=== PATIENT | male | born 1960 ===

== ENCOUNTER → 2018-09-22 05:24 | Day surgery (SDC) | payer OTHER | END | disposition home or self-care (01) | LOC: D.OPS 05:24 | PROVIDERS: ATTEND Surgery | DX: Z86.010 Personal history of colon polyps (principal); Z53.9 Procedure and treatment not carried out, unspecified reason ==

== ENCOUNTER 2018-09-29 09:55 | Day surgery (SDC) | payer OTHER ==
[~2018-09-29] VITALS: Ht 177.8 cm; Wt 72.7 kg
[2018-09-29] MEDS ORDERED: LISINOPRIL40 MG (10:34)
[2018-09-29] MEDS ORDERED: AIRDUO (10:36)
[2018-09-29] MEDS ORDERED: ACETAMINOPHEN500 M1 (10:36)
[2018-09-29] MEDS ORDERED: NORVASC10 MG (10:37)
[2018-09-29] MEDS ORDERED: BAYER CHEWABLE81 MG PO (10:38)
[2018-09-29 10:39] LABS: BASOPHILS 0.1 % (0-2); EOSINOPHILS 2.7 % (0-7); HEMATOCRIT 27.7 % (42.0-54.0); HEMOGLOBIN 8.1 g/dL (13.5-17.5); IMMATURE GRANULOCYTES 0.2 % (0-5); LYMPHOCYTES 10.7 % (15-50); MCH 23.5 pg (26.0-34.0); MCHC 29.2 g/dL (31.0-37.0); MCV 80.5 fL (80.0-100.0); MEAN PLATELET VOLUME 9.1 fL (7.4-10.4); MONOCYTES 6.7 % (2-11); NEUTROPHILS 79.6 % (40-80); PLATELET COUNT 444 10x3/uL (130-400); RBC 3.44 10x6/uL (4.20-6.10); RDW 15.4 % (11.5-14.5); WBC 9.6 10x3/uL (4.8-10.8)
[2018-09-29] MEDS ORDERED: BACLOFEN10 MG (10:39)
[2018-09-29] MEDS ORDERED: COLACE100 MG (10:40)
[2018-09-29] MEDS ORDERED: PROTONIX40 MG (10:40)
[2018-09-29] MEDS ORDERED: XOPENEX HFA15 GM (10:41)
[2018-09-29] MEDS ORDERED: CARAFATE1 G (10:41)
[2018-09-29] MEDS ORDERED: IRON (10:43)
[2018-09-29 10:49] LABS: ANION GAP 11.9 mmol/L (8-16); CALCIUM 8.6 mg/dL (8.5-10.1); CARBON DIOXIDE 27.1 mmol/L (21.0-32.0); CREATININE - SERUM 1.1 mg/dL (0.6-1.3)
[2018-09-29 11:08] VITALS: BP 132/70; Ht 177.8 cm; Wt 72.7 kg
--- NOTE | 2018-10-01 16:42 | HP ---
PATIENT: MITCH FIGUEROA MEDICAL RECORD: [id number] ACCOUNT: [id number] LOCATION:[facility] : 64 ADMISSION DATE: 09/29/18 PCP: No PCP HISTORY AND PHYSICAL EXAMINATION CHIEF COMPLAINT: Needs endoscopy. HISTORY OF PRESENT ILLNESS: The patient has recurrent dysphagia. He states that esophageal dilation has helped in the past. We will plan on performing an esophageal dilation today. The patient has a history of gastric antral vascular ectasias (watermelon stomach) and underwent an upper endoscopy in [place] in the past for this. He has a history of colon polyps and is here for surveillance colonoscopy as well. I saw him out at the [place] unit on a GI consultation day. The patient presented recently to the hospital, but had not been prepped and therefore his procedure was canceled. We discussed the planned procedure for today. HOME MEDICATIONS: Please see the nursing list. ALLERGIES: No known drug allergies. SOCIAL HISTORY: Former smoker. PAST MEDICAL AND SURGICAL HISTORY: Asthma, COPD, hypertension, stents in his left lower extremity, also history of EGD, history of colonoscopy. PHYSICAL EXAMINATION: GENERAL: The patient does not appear acutely ill. He does appear chronically ill. VITAL SIGNS: Reviewed. EARS: External ears appear normal. EYES: Extraocular movements are intact. NECK: Trachea is midline. CHEST: No intercostal retractions. PULMONARY: Nonlabored, no stridor. IMPRESSION: 1. Dysphagia. 2. Gastroesophageal reflux. 3. Gastric antral vascular ectasias. 4. History of colon polyps. PLAN: EGD, esophageal dilation, and surveillance colonoscopy. TRANSINT:[id number] Voice Confirmation ID: [id number] DOCUMENT ID: [id number] HISTORY AND PHYSICAL [id number] FIGUEROAMITCH, LOYDA GEORGE at 1642 CC: SCOTT RUELAS MD, [facility] NENA CRUZ APN,[id number] Mcgarry DICTATION DATE: 09/29/18 1132 [facility] SALES: 09/29/18 1404 [facility] 09/29/18 [address] [place] [address]
--- NOTE | 2018-10-01 16:42 | OP ---
PATIENT NAME: MITCH FIGUEROA MEDICAL RECORD: [id number] :64 LOCATION:D.OPS ADMISSION DATE: SURGEON: LOYDA RODRIGUEZ MD DATE OF OPERATION: 09/29/2018 PREOPERATIVE DIAGNOSES: 1. Anemia. 2. Dysphagia, recurrent. 3. Gastroesophageal reflux disease. 4. History of colon polyps, in need of surveillance colonoscopy. 5. 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 POSTOPERATIVE DIAGNOSES: 1. Anemia. 2. Dysphagia, recurrent. 3. Gastroesophageal reflux disease. 4. History of colon polyps, in need of surveillance colonoscopy. 5. Angioectasias within the cecum. 6. Large hiatal hernia. PROCEDURES: 1. Esophagogastroduodenoscopy with antral biopsies. 2. Esophageal dilation to 60-Belgian with a through the catheter balloon. 3. Argon plasma coagulation therapy to gastric antral vascular ectasias (watermelon stomach). 4. Total colonoscopy to cecum. 5. Argon plasma coagulation therapy to angioectasias of the cecum. 6. Hot biopsy forceps polypectomy times 1. SURGEON: Loyda Rodriguez MD CHANNEL ROUGHER: None. BLOOD LOSS: Minimal. ANESTHESIA: IV sedation. COMPLICATIONS: None. The risks, possible complications, alternatives to the procedure were explained to the patient. The patient has a hematocrit of 27. I am trying to call the [facility] unit. At 27, I am not sure that he is going to require a transfusion. I did find angioectasias, which could account for some of the anemia and bleeding. ENDOSCOPIC COURSE: The patient was conveyed to endoscopy suite electively on 09/29/2018. A bite block was inserted. IV sedation was induced by the anesthesia staff. A gastroscope was inserted into the mouth. It was advanced easily into the hypopharynx. The esophagus was easily intubated. There was a distal esophageal stricture. It was difficult to get the scope to pass through the strictured area. I then entered the stomach and then the duodenum. Retroflexed and angulus views were obtained. Argon plasma coagulation therapy OPERATIVE REPORT [id number] MITCH FIGUEROA was performed to angioectasias within the antrum. Cold biopsy forceps were performed in the antrum to check for H. pylori. A retroflex view was obtained. I then unretroflexed the scope. I advanced it through the catheter balloon. I then dilated the distal esophageal stricture to 60-Belgian. The gastroscope and balloon dilator were then removed. I re-endoscoped the patient's esophagus and stomach. There had been no evidence of false passage or perforation. The endoscope was then withdrawn under direct vision. The patient was turned 180 degrees and placed in the Fernandez position. A digital rectal examination was performed. This revealed a prostate, which was symmetric and without nodules. A colonoscope was inserted through the anus. It was easily advanced to the cecum. Upon withdrawal, I irrigated and aspirated extensively. There were some cecal angioectasias and these were treated with the argon plasma piling setter, again with the right colon setting in the forced mode. I continued to withdraw the endoscope. I irrigated and aspirated extensively. The prep was adequate. One hot biopsy forceps polypectomy was performed and this was a polyp that was a 7 mm sessile polyp. A retroflexed view was obtained in the rectum. I then unretroflexed the scope and removed it under direct vision. I will plan for the patient's next surveillance colonoscopy to take place in 3 years. TRANSINT:[id number] Voice Confirmation ID: [id number] DOCUMENT ID: [id number] LOYDA RODRIGUEZ MD at 1642 CC: SCOTT RUELAS MD, [facility] NENA MADDEN [id number] Mcgarry DICTATION DATE: 09/29/18 1228 RUBBER WASHER: 09/29/18 1515 [facility] 09/29/18 [address] [place] [address]
== END 2018-09-29 13:20 | disposition home or self-care (01) ==
LOC: D.OPS 09:55
PROVIDERS: ATTEND Surgery
DX: Q27.33 Arteriovenous malformation of digestive system vessel (principal); K31.819 Angiodysplasia of stomach and duodenum without bleeding; K44.9 Diaphragmatic hernia without obstruction or gangrene; K22.2 Esophageal obstruction; K29.50 Unspecified chronic gastritis without bleeding; D12.4 Benign neoplasm of descending colon; D64.9 Anemia, unspecified; K21.9 Gastro-esophageal reflux disease without esophagitis; Z86.010 Personal history of colon polyps; Z01.812 Encounter for preprocedural laboratory examination

== ENCOUNTER 2018-10-20 07:00 | Day surgery (SDC) | payer OTHER ==
[~2018-10-20] VITALS: Ht 177.8 cm; Wt 72.7 kg
[~2018-10-20 07:00] MED LIST: ACETAMINOPHEN500 M1; AIRDUO; BACLOFEN10 MG; BAYER CHEWABLE81 MG PO; CARAFATE1 G; COLACE100 MG; IRON; LISINOPRIL40 MG; NORVASC10 MG; PROTONIX40 MG; XOPENEX HFA15 GM
[2018-10-20 07:55] VITALS: BP 140/78; Ht 177.8 cm; Wt 72.7 kg
[2018-10-20 08:33] LABS: BASOPHILS 0.5 % (0-2); EOSINOPHILS 6.2 % (0-7); HEMATOCRIT 34.9 % (42.0-54.0); HEMOGLOBIN 10.5 g/dL (13.5-17.5); IMMATURE GRANULOCYTES 0.3 % (0-5); LYMPHOCYTES 16.7 % (15-50); MCH 24.6 pg (26.0-34.0); MCHC 30.1 g/dL (31.0-37.0); MCV 81.9 fL (80.0-100.0); MEAN PLATELET VOLUME 9.6 fL (7.4-10.4); MONOCYTES 7.4 % (2-11); NEUTROPHILS 68.9 % (40-80); PLATELET COUNT 381 10x3/uL (130-400); RBC 4.26 10x6/uL (4.20-6.10); RDW 17.5 % (11.5-14.5); WBC 7.7 10x3/uL (4.8-10.8)
[2018-10-20 08:48] LABS: CALC OSMOLALITY 282 mosm/kg (275-300); CALCIUM 9.1 mg/dL (8.5-10.1); CHLORIDE - SERUM 109 mmol/L (98-107); CREATININE - SERUM 0.8 mg/dL (0.6-1.3); GLUCOSE 87 mg/dL (74-106); SODIUM 143 mmol/L (136-145); UREA NITROGEN 10 mg/dL (7-18); eGFR NON AFRICAN AMERICAN > 90 mL/min (90-120)
[2018-10-20 08:53] LABS: POTASSIUM - SERUM 5.5 mmol/L (3.5-5.1)
--- NOTE | 2018-10-20 13:00 | NUR ---
H&P AND POST-OP NOTE IN DC PACKET AND SENT W/ GUARDS
--- NOTE | 2018-10-20 13:01 | NUR ---
DC INSTRUCTIONS GIVEN TO PT. STATES UNDERSTANDING. DC'D IV CATH FULLY INTACT.
--- NOTE | 2018-10-20 13:11 | NUR ---
PT LEFT UNIT VIA WC AT 1305 ACCOMPANIED BY GUARDS AT SIDE
--- NOTE | 2018-10-21 18:45 | OP ---
PATIENT NAME: MITCH FIGUEROA MEDICAL RECORD: [id number] :64 LOCATION:D.OPS ADMISSION DATE: SURGEON: LOYDA RODRIGUEZ MD DATE OF OPERATION: 10/20/2018 PREOPERATIVE DIAGNOSIS: Recurrent blood loss anemia requiring transfusions. POSTOPERATIVE DIAGNOSES: Recurrent blood loss anemia requiring transfusions. One diminutive polyp, which was a 5 mm x 5 mm sessile polyp. PROCEDURES: 1. Total colonoscopy to cecum. 2. Hot biopsy forceps polypectomy times 1. SURGEON: Loyda Rodriguez MD DISH TECHNICIAN: None. BLOOD LOSS: Minimal. ANESTHESIA: IV sedation. COMPLICATIONS: None. The risks, possible complications and alternatives to the procedure were explained to the patient. He elects to proceed. ENDOSCOPIC COURSE: The patient was conveyed to endoscopy suite electively on 10/20/2018. IV sedation was induced by the anesthesia staff. The patient was placed in the Fernandez position. Digital rectal examination was performed. A colonoscope was inserted through the anus. It was easily advanced to the cecum. The prep was adequate. I slowly withdrew the endoscope. I irrigated and aspirated extensively. The pullback was greater than an 18-minute pullback. I dragged the folds. I used a combination of normal imaging and narrow band imaging. A hot biopsy forceps polypectomy was performed. A retroflexed view was obtained in the rectum. I then unretroflexed the scope and removed it under direct vision. I contacted Corona Aguilar APN by phone. There was no evidence of recurrent angioectasias. The diminutive polyp, which was removed, does not account for his blood loss anemia, which is improved today. His hematocrit today is 34, so it looks like the iron supplementation is working. TRANSINT:[id number] Voice Confirmation ID: [id number] DOCUMENT ID: [id number] LOYDA RODRIGUEZ MD at 1845 CC: SCOTT RUELAS MD, GIA COATES APN, MITCH BARRETT MD and [id number] L DICTATION DATE: 10/20/18 1212 MANAGER PEDIATRIC: 10/20/18 1344 [facility] 10/20/18 [id number] [place] [address]
--- NOTE | 2018-10-21 18:58 | HP ---
PATIENT: MITCH FIGUEROA MEDICAL RECORD: [id number] ACCOUNT: [id number] LOCATION:[facility] : 64 ADMISSION DATE: 10/20/18 PCP: No PCP HISTORY AND PHYSICAL EXAMINATION CHIEF COMPLAINT: Recurrent anemia requiring blood transfusions. HISTORY: The patient has had some dark stools, but he has been on iron supplementation. I have spoken to his nurse practitioner several times. The patient underwent an upper and lower endoscopy just last month. This revealed angioectasias in the cecum as well as in the stomach. The patient underwent argon plasma coagulation therapy. He is to undergo re-endoscopy to see if there has been regrowth of the angioectasias or any other source of bleeding. PAST MEDICAL AND SURGICAL HISTORY: Some type of peripheral vascular bypass, gastroesophageal reflux, COPD. SOCIAL HISTORY: Former smoker. ALLERGIES: No known drug allergies. HOME MEDICATIONS: Please see the nursing list. PHYSICAL EXAMINATION: GENERAL: The patient does not appear acutely ill. He does appear chronically ill. VITAL SIGNS: Reviewed. EARS: External ears appear normal. EYES: Extraocular movements are intact. NECK: Trachea midline. CHEST: No intercostal retractions. PULMONARY: Nonlabored, no stridor. IMPRESSION: Recurrent anemia requiring blood transfusions. PLAN: Repeat colonoscopy. TRANSINT:[id number] Voice Confirmation ID: [id number] DOCUMENT ID: [id number] LOYDA RODRIGUEZ MD at 1858 CC: SCOTT RUELAS MD, GIA COATES APN, STIEVE, JEFFREY MD and [id number] L DICTATION DATE: 10/20/18 1130 SKILLS INSTRUCTOR: 10/20/18 1151 [facility] 10/20/18 [address] [place] [address]
== END 2018-10-20 13:05 | disposition home or self-care (01) ==
LOC: D.OPS 07:00
PROVIDERS: Anesthesiology; ATTEND Surgery
DX: K63.5 Polyp of colon (principal); D50.0 Iron deficiency anemia secondary to blood loss (chronic); Z01.812 Encounter for preprocedural laboratory examination; K21.9 Gastro-esophageal reflux disease without esophagitis; J44.9 Chronic obstructive pulmonary disease, unspecified; Z87.891 Personal history of nicotine dependence